=== PATIENT | female | born 1955 | race Two or more races ===

== ENCOUNTER 2024-08-08 08:27 | Day surgery (SDC) | payer MEDICARE, SELFPAY ==
[2024-08-02 16:24] VITALS: BMI 20.4
--- NOTE | 2024-08-04 13:56 | P.CONAN_ITS ---
Documented by User: Liv Sidhu NP 08/04/24 13:56 HPI - Anesthesia Eval Consult details Narrative: 69yo F for Right Cataract Extraction IOL Insertion No previous cataract on record [facility], [facility] Past Medical History Medical History Cataracts, bilateral High cholesterol Osteopenia Osteoarthritis Glaucoma Surgical History Surgical History Hx of colonoscopy History of total hysterectomy with bilateral salpingo-oophorectomy (BSO) (~1995) Social History Social History Household Members: Spouse Housing: House Are you a primary chronic care nurse to a significant other at home: No Do you presently have visiting nurse or other home services: No Patient Tobacco Use Status: Never used Tobacco Meds Allergies Allergy/AdvReac Type Severity Reaction Status Date / Time No Known Allergies Allergy Verified 08/08/24 11:54 Home Medications ?Medication ?Instructions ?Recorded ?Confirmed ?Last Taken ?Type calcium carbonate 500 mg-vitamin 1 tab PO DAILY 08/02/24 08/08/24 08/07/24 History D3 5 mcg (200 unit) tablet (Calcium 500 + D) cholecalciferol (vitamin D3) 50 50 mcg PO DAILY 08/02/24 08/08/24 08/07/24 History mcg (2,000 unit) capsule (Vitamin D3) raloxifene 60 mg tablet 60 mg PO DAILY 08/02/24 08/08/24 08/07/24 History rosuvastatin 10 mg tablet 10 mg PO BEDTIME 08/02/24 08/08/24 08/07/24 History timolol maleate 0.5 % eye drops 1 drp QAM 08/02/24 08/08/24 08/07/24 History Exam Height,Weight and Vital Signs: Height 5 ft 1 in Weight 48.988 kg Assessment and Plan Assessment Anesthesia Assessment: Chart Reviewed Documented by User: Anushka Shepherd MD 08/08/24 12:03 [facility] Past Medical History Medical History Cataracts, bilateral High cholesterol Osteopenia Osteoarthritis Glaucoma Functional capacity: bed bound Surgical History Surgical History Hx of colonoscopy History of total hysterectomy with bilateral salpingo-oophorectomy (BSO) (~1995) History of Problems with Anesthesia: No Social History Social History Household Members: Spouse Housing: House Are you a primary chronic care nurse to a significant other at home: No Do you presently have visiting nurse or other home services: No Patient Tobacco Use Status: Never used Tobacco Meds Allergies Allergy/AdvReac Type Severity Reaction Status Date / Time No Known Allergies Allergy Verified 08/08/24 11:54 Home Medications ?Medication ?Instructions ?Recorded ?Confirmed ?Last Taken ?Type calcium carbonate 500 mg-vitamin 1 tab PO DAILY 08/02/24 08/08/24 08/07/24 History D3 5 mcg (200 unit) tablet (Calcium 500 + D) cholecalciferol (vitamin D3) 50 50 mcg PO DAILY 08/02/24 08/08/24 08/07/24 History mcg (2,000 unit) capsule (Vitamin D3) raloxifene 60 mg tablet 60 mg PO DAILY 08/02/24 08/08/24 08/07/24 History rosuvastatin 10 mg tablet 10 mg PO BEDTIME 08/02/24 08/08/24 08/07/24 History timolol maleate 0.5 % eye drops 1 drp QAM 08/02/24 08/08/24 08/07/24 History Exam Airway Mallampati Class: II TM Dist: >3cm Neck ROM: Full Loose/Missing/Broken Teeth: No Heart: RRR Lungs: CTA Assessment and Plan Assessment Anesthesia Assessment: Anesthesia Plan Discussed Final Anesthetic Review History of Problems with Anesthesia: No NPO: Yes ASA Class: II Final Preanesthetic Review: Meds/Allgs Chart Reviewed, Consent Obtained/Reviewed and Anes Risks/Benef Reviewed Patient Risk: Low Procedure Risk: Low Anesthetic Plan Anesthetic Plan: MAC: Disposition: Standard PACU
[2024-08-08] MEDS: Tetracaine HCl/PF 0.5% Oph Sol 4 ML DROPS 1 DROP EYE-RIGHT (11:15)
[2024-08-08] MEDS: Cyclopentolate 1 % Ophth Sol 2 ML DRPBTL 1 DROP EYE-RIGHT ×3 (11:17→11:31)
[2024-08-08] MEDS: Tropicamide 1 % Ophth Sol 3 ML BTL 1 DROP EYE-RIGHT ×3 (11:19→11:33)
[2024-08-08] MEDS: Ketorolac Tromethamine 0.5% Op 10 ML DROPS 1 DROP EYE-RIGHT ×3 (11:21→11:35)
[2024-08-08] MEDS: Phenylephrine HCL 2.5% Oph SoL 2 ML BOTTLE 1 DROP EYE-RIGHT ×3 (11:23→11:37)
[2024-08-08 11:41] VITALS: BP 120/69; PULSE 61; RESP 14; TEMP 36.1; O2SAT 100; BMI 21.0
[2024-08-08] MEDS: Lactated Ringers 500 ML 50 ML IV (11:53)
--- NOTE | 2024-08-08 13:03 | MHC.SHP ---
Pre-Procedural Eval Section A - 24 Hr Update-Section A only Date of Service: 08/08/24 The patient is an INPATIENT: No Changes since office visit: No Cold of Flu in the past 2 weeks, No New Medical Problems, No Changes in Medication and No Patient answered all questions The patient has been examined within 24 hours of the surgical procedure. The History & Physical has been completed within 30 days and I have reviewed it.: Yes Section B - Complete if H&P > 30 days Chief Complaint: Age-related nuclear cataract, right eye Allergies: Allergies Allergy/AdvReac Type Severity Reaction Status Date / Time No Known Allergies Allergy Verified 08/08/24 11:54 Plan Diagnosis/Plan: Unchanged I have reviewed the history and physical and performed a pertinent physical examination on my patient. No changes have occurred unless specified. Time Spent With Patient Time: Total time managing care of this patient today ____ minutes.
--- NOTE | 2024-08-08 13:04 | P.PCNO_ITS ---
Ophthalmology Procedure Procedure Date of Service: 08/08/24 Ophthalmology Viscoelastic: Healon Duet Dual Pack Pro Ophthalmology Lenses: IOL Acrysof MP - MA60AC (25) Procedure Notes: PREOPERATIVE DIAGNOSIS: Decreased visual acuity right eye secondary to cataract POSTOPERATIVE DIAGNOSIS: Same PROCEDURE: Right cataract extraction with intraocular lens insertion SURGEON: Pa Chilel M.D. ANESTHESIA: Topical/MAC ESTIMATED BLOOD LOSS: None COMPLICATIONS: None After obtaining informed consent, the patient was brought to the operating room suite and placed in the supine position. After adequate sedation per anesthesia, topical drops of Tetracaine were given to the right eye. The eye was then prepped and draped in the usual sterile fashion. The operating room microscope was then positioned over the operative eye and a lid speculum placed. A paracentesis was created. Viscoelastic was then instilled into the anterior chamber. A three plane incision was then created temporally, utilizing a 2.85 mm keratome. Capsulotomy forceps were then utilized to create a circular tear capsulotomy. Hydrodissection and hydrodelineation were carried out until adequate mobilization of the nucleus occurred. Phacoemulsification was then utilized to remove the dense central nucl eus followed by removal of the cortical material utilizing the automated aspiration irrigation unit. Viscoelastic was instilled into the posterior capsular bag followed by placement of a posterior chamber intraocular lens without difficulty. The residual Viscoelastic was then removed utilizing the automated IA machine. The wound was checked and found to be watertight. The patient tolerated the procedure well and the lid speculum was removed. Intracameral injection of Vigamox 0.1 mL followed by a subtenon injection of Kenalog-40 0.2 mL were administered. The patient will be seen in the a.m.
[2024-08-08 13:44] VITALS: BP 134/74; PULSE 65; RESP 16; TEMP 36.3; O2SAT 100
== END 2024-08-08 14:05 | disposition home or self-care (01) ==
PROVIDERS: PCP Internal Medicine; Visit Provider Ophthalmology
PROC: (CPT 66985; principal; 2024-08-08 11:00)
DX: H25.11 Age-related nuclear cataract, right eye (principal); H54.7 Unspecified visual loss; Z83.511 Family history of glaucoma; H40.1121 Primary open-angle glaucoma, left eye, mild stage; E78.00 Pure hypercholesterolemia, unspecified; M85.80 Other specified disorders of bone density and structure, unspecified site; Z68.20 Body mass index [BMI] 20.0-20.9, adult; M19.90 Unspecified osteoarthritis, unspecified site; Z79.899 Other long term (current) drug therapy; Z79.810 Long term (current) use of selective estrogen receptor modulators (SERMs); Z98.890 Other specified postprocedural states
CPT/HCPCS: 66984; J2250; J3010; J3301; V2630

== ENCOUNTER 2024-08-22 08:25 | Day surgery (SDC) | payer MEDICARE, SELFPAY ==
[2024-08-02 16:24] VITALS: BMI 20.4
--- NOTE | 2024-08-18 13:06 | HO.ANESPROP2 ---
Documented by User: Liv Sidhu NP 08/18/24 13:07 HPI - Anesthesia Eval Consult details Narrative: 69yo F for Left Cataract Extraction IOL Insertion Right cataract 08/08/24: Fent 50, Midaz 2 PMFSH Past Medical History Medical History Cataracts, bilateral High cholesterol Osteopenia Osteoarthritis Glaucoma Surgical History Surgical History Hx of colonoscopy History of total hysterectomy with bilateral salpingo-oophorectomy (BSO) (~1995) History of Problems with Anesthesia: No Social History Social History Household Members: Spouse Housing: House Are you a primary acute care physician to a significant other at home: No Do you presently have visiting nurse or other home services: No Patient Tobacco Use Status: Never used Tobacco Advance Directives: No Advance Directives Information Provided: Yes Meds Allergies Allergy/AdvReac Type Severity Reaction Status Date / Time No Known Allergies Allergy Verified 08/22/24 09:39 Home Medications ?Medication ?Instructions ?Recorded ?Confirmed ?Last Taken ?Type calcium carbonate 500 mg-vitamin 1 tab PO DAILY 08/02/24 08/08/24 08/07/24 History D3 5 mcg (200 unit) tablet (Calcium 500 + D) cholecalciferol (vitamin D3) 50 50 mcg PO DAILY 08/02/24 08/08/24 08/07/24 History mcg (2,000 unit) capsule (Vitamin D3) raloxifene 60 mg tablet 60 mg PO DAILY 08/02/24 08/08/24 08/07/24 History rosuvastatin 10 mg tablet 10 mg PO BEDTIME 08/02/24 08/08/24 08/07/24 History timolol maleate 0.5 % eye drops 1 drp QAM 08/02/24 08/08/24 08/22/24 History Exam Height,Weight and Vital Signs: Height 5 ft 1 in Weight 48.988 kg Assessment and Plan Assessment Anesthesia Assessment: Chart Reviewed Final Anesthetic Review History of Problems with Anesthesia: No Documented by User: Odalis Ovalle MD 08/22/24 09:48 PMFSH Past Medical History Medical History Cataracts, bilateral High cholesterol Osteopenia Osteoarthritis Glaucoma Family History Family history of problems with anesthesia: No Surgical History Surgical History Hx of colonoscopy History of total hysterectomy with bilateral salpingo-oophorectomy (BSO) (~1995) Social History Social History Household Members: Spouse Housing: House Are you a primary acute care physician to a significant other at home: No Do you presently have visiting nurse or other home services: No Patient Tobacco Use Status: Never used Tobacco Advance Directives: No Advance Directives Information Provided: Yes Meds Allergies Allergy/AdvReac Type Severity Reaction Status Date / Time No Known Allergies Allergy Verified 08/22/24 09:39 Home Medications ?Medication ?Instructions ?Recorded ?Confirmed ?Last Taken ?Type calcium carbonate 500 mg-vitamin 1 tab PO DAILY 08/02/24 08/08/24 08/07/24 History D3 5 mcg (200 unit) tablet (Calcium 500 + D) cholecalciferol (vitamin D3) 50 50 mcg PO DAILY 08/02/24 08/08/24 08/07/24 History mcg (2,000 unit) capsule (Vitamin D3) raloxifene 60 mg tablet 60 mg PO DAILY 08/02/24 08/08/24 08/07/24 History rosuvastatin 10 mg tablet 10 mg PO BEDTIME 08/02/24 08/08/24 08/07/24 History timolol maleate 0.5 % eye drops 1 drp QAM 08/02/24 08/08/24 08/22/24 History Exam Airway Mallampati Class: II TM Dist: >3cm Neck ROM: Full Heart: rrr Lungs: cta Assessment and Plan Assessment Anesthesia Assessment: Anesthesia Plan Discussed Final Anesthetic Review Family History of Problems with Anesthesia: No NPO: Yes ASA Class: II Final Preanesthetic Review: No Changes in Pt Med Stat, Meds/Allgs Chart Reviewed, Consent Obtained/Reviewed and Anes Risks/Benef Reviewed Patient Risk: Low Procedure Risk: Low Anesthetic Plan Anesthetic Plan: MAC: Disposition: Standard PACU
[2024-08-22 09:48] VITALS: BP 111/68; PULSE 64; RESP 15; TEMP 36.3; O2SAT 99
[2024-08-22] MEDS: Tetracaine HCl/PF 0.5% Oph Sol 4 ML DROPS 1 DROP EYE-LEFT (09:49)
[2024-08-22] MEDS: Cyclopentolate 1 % Ophth Sol 2 ML DRPBTL 1 DROP EYE-LEFT ×3 (09:52→10:05)
[2024-08-22] MEDS: Tropicamide 1 % Ophth Sol 3 ML BTL 1 DROP EYE-LEFT ×3 (09:53→10:07)
[2024-08-22] MEDS: Ketorolac Tromethamine 0.5% Op 10 ML DROPS 1 DROP EYE-LEFT ×3 (09:55→10:08)
[2024-08-22] MEDS: Phenylephrine HCL 2.5% Oph SoL 2 ML BOTTLE 1 DROP EYE-LEFT ×3 (09:58→10:09)
[2024-08-22] MEDS: Lactated Ringers 500 ML 50 ML IV (09:59)
--- NOTE | 2024-08-22 10:15 | MHC.SHP ---
Pre-Procedural Eval Section A - 24 Hr Update-Section A only Date of Service: 08/22/24 The patient is an INPATIENT: No Changes since office visit: No Cold of Flu in the past 2 weeks, No New Medical Problems, No Changes in Medication and No Patient answered all questions The patient has been examined within 24 hours of the surgical procedure. The History & Physical has been completed within 30 days and I have reviewed it.: Yes Section B - Complete if H&P > 30 days Chief Complaint: Age-related nuclear cataract, left eye Allergies: Allergies Allergy/AdvReac Type Severity Reaction Status Date / Time No Known Allergies Allergy Verified 08/22/24 09:39 Plan Diagnosis/Plan: Unchanged I have reviewed the history and physical and performed a pertinent physical examination on my patient. No changes have occurred unless specified. Time Spent With Patient Time: Total time managing care of this patient today ____ minutes.
--- NOTE | 2024-08-22 10:16 | HO.PNOPHT ---
Ophthalmology Procedure Procedure Date of Service: 08/22/24 Ophthalmology Viscoelastic: Healon Duet Dual Pack Pro Ophthalmology Lenses: IOL Acrysof MP - MA60AC (24.5) Procedure Notes: PREOPERATIVE DIAGNOSIS: Decreased visual acuity left eye secondary to cataract POSTOPERATIVE DIAGNOSIS: Same PROCEDURE: Left cataract extraction with intraocular lens insertion SURGEON: Pa Chilel M.D. ANESTHESIA: Topical/MAC ESTIMATED BLOOD LOSS: None COMPLICATIONS: None After obtaining informed consent, the patient was brought to the operation room suite and placed in the supine position. After adequate sedation per anesthesia, topical drops of Tetracaine were given to the left eye. The eye was then prepped and draped in the usual sterile fashion. The operating room microscope was then positioned over the operative eye and a lid speculum placed. A paracentesis was created. Viscoelastic was then instilled into the anterior chamber. A three plane incision was then created temporally, utilizing a 2.85 mm keratome. Capsulotomy forceps were then utilized to create a circular tear capsulotomy. Hydrodissection and hydrodelineation were carried out until adequate mobilization of the nucleus occurred. Phacoemulsification was then utilized to remove the dense central nucleus followed by removal of the cortical material utilizing the automated aspiration irrigation unit. Viscoat elastic was instilled into the posterior capsular bag followed by placement of a posterior chamber intraocular lens without difficulty. The residual Viscoat elastic was then removed utilizing the automated IA machine. The wound was check and found to be watertight. The patient tolerated the procedure well and the lid speculum was removed. Intracameral injection of Vigamox 0.1 mL followed by a subtenon injection of Kenalog-40 0.2 mL were administered. The patient will be seen in the a.m.
[2024-08-22 10:45] VITALS: BP 126/64; PULSE 69; RESP 18; TEMP 36.1; O2SAT 100
== END 2024-08-22 11:00 | disposition home or self-care (01) ==
PROVIDERS: PCP Internal Medicine; Visit Provider Ophthalmology
PROC: (CPT 66985; principal; 2024-08-22 10:30)
DX: H25.12 Age-related nuclear cataract, left eye (principal); H54.7 Unspecified visual loss; H40.1121 Primary open-angle glaucoma, left eye, mild stage; Z83.511 Family history of glaucoma; E78.00 Pure hypercholesterolemia, unspecified; M19.90 Unspecified osteoarthritis, unspecified site; Z79.899 Other long term (current) drug therapy; Z98.890 Other specified postprocedural states
CPT/HCPCS: 66984; J2250; J3301; V2630

== ENCOUNTER 2025-07-27 12:35 | Outpatient (REF) | payer MEDICARE, SELFPAY | END 2025-07-27 12:36 | disposition home or self-care (01) | LOC: HO.LNP 12:35 | PROVIDERS: PCP Internal Medicine; Visit Provider Surgery | DX: L98.9 Disorder of the skin and subcutaneous tissue, unspecified (principal); R22.42 Localized swelling, mass and lump, left lower limb | CPT/HCPCS: 11402; 88304; 88305 ==

== ENCOUNTER 2025-07-27 12:35 | Outpatient (AMB) | payer MEDICARE, SELFPAY ==
--- NOTE | 2025-07-27 12:36 | A.OFFVIS_ITS ---
Vital Signs 07/27/25 12:42 Height 5 ft 1 in Weight 114 lb BMI 21.5 BP 120/58 L Blood Pressure Location Rt brachial Position Sitting Pulse 83 Intake Visit Reasons: excision mass Intake Note: Patient here for mass/ growth on left posterior thigh. Present for 2yrs. Patient c/o: dry, irritated with clothing. [employer] Required: No Accompanied by: spouse Shantilal Allergies No Known Allergies Allergy (Verified 07/27/25 12:43) Medication List - Last Reconciled 07/27/25 by Eris Denton MD calcium carbonate-vitamin D3 500 mg-5 mcg (200 unit) (Calcium 500 + D) 1 tab PO DAILY cholecalciferol (vitamin D3) (Vitamin D3) 50 mcg PO DAILY raloxifene 60 mg PO DAILY rosuvastatin 10 mg PO BEDTIME timolol maleate 0.5% 1 drp QAM HPI HPI excision mass: Details: 70F here for excision of a skin lesion from the left thigh. She has had this for about 2 years. This has been bothering her with discomfort as this gets i rritated by her clothing. [facility] Medical History (Updated 07/27/25 @ 13:06 by Eris Denton MD) Benign skin lesion of thigh Cataracts, bilateral High cholesterol Osteopenia Osteoarthritis Glaucoma Surgical History Hx of colonoscopy History of total hysterectomy with bilateral salpingo-oophorectomy (BSO) (~1995) Social History Household Members: Spouse Housing: House Are you a primary manager medicare marketing to a significant other at home: No Do you presently have visiting nurse or other home services: No Patient Tobacco Use Status: Never used Tobacco Review of Systems Const Denies chills and Denies fever(s) Physical Exam Vital Signs: Last Vital Signs Pulse 83 07/27/25 12:42 BP 120/58 L 07/27/25 12:42 BMI result Body Mass Index 21.5 Const General: comfortable and no acute distress Resp Effort & Inspection: normal respiratory effort Extrem Other: left posterior thigh - papillomatous lesion, 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 The area of the lesion was prepped and draped. Lidocaine 1% was used for local anesthesia. I made an elliptical incision around the lesioon with normal skin margins, This was carried down through the full thickness of the skin and part of the subcutaneous layer and sent as a specimen. The skin was closed with full thickness nylon 3--0 simple sutures. Dressings were applied and the procedure was completed. She tolerated the procedure well. [id number]/arms/legs 0.6-1cm Procedure code (CPT) selection complete Assessment & Plan Assessment & Plan (1) Benign skin lesion of thigh: Code(s): L98.9 - Disorder of the skin and subcutaneous tissue, unspecified Category: Medical Plan: Excision was done in the office under local anesthesia. There were no complications. She was given wound care instructions. She we will have her sutures removed in about 2 weeks. Coding Level of Care Code Procedure Only Diagnoses Benign skin lesion of thigh L98.9 CPT Codes Trunk/Arms/Legs - CPT: 71840-[id number]/arms/legs 0.6-1cm ([id number])
[2025-07-27 12:42] VITALS: BP 120/58; PULSE 83; BMI 21.5
== END 2025-07-27 13:10 | disposition home or self-care (01) ==
LOC: HO.HGS 12:36
PROVIDERS: PCP Internal Medicine; Visit Provider Surgery
DX: B07.9 Viral wart, unspecified (principal); L98.9 Disorder of the skin and subcutaneous tissue, unspecified
CPT/HCPCS: 11402